=== PATIENT | female | born 1985 | race Caucasian/White ===

== ENCOUNTER 2017-01-04 17:00 | Inpatient (IN) | payer OTHER ==
[~2017-01-04] VITALS: Ht 170.2 cm; Wt 75.7 kg
--- NOTE | ~2017-01-04 | FD ---
ADMIT: 01/04/2017 RM/LOC: 219 [facility] MR#: [id number] [address] [id number] [facility] [address] [place] [address] Final Diagnosis SEX: F AGE: 31 : 1985 ADMISSION DATE: 01/04/2017 DISCHARGE DATE: 01/07/2017 FINAL DIAGNOSIS: Intrauterine at term. PROCEDURE: Spontaneous vaginal delivery. Sofía Cerrato MD/ jaime JOB #: [id number] CC: Sofía Cerrato MD, Attending Physician Sofía Cerrato MD, Family Physician
--- NOTE | ~2017-01-04 | HP ---
ADMIT: 01/04/2017 RM/LOC: 219 [facility] MR#: [id number] [address] [facility] [address] [place], [place] [address] [place] [address] [place] [address] History and Physical SEX: F AGE: 31 : 1985 DATE OF SERVICE: REASON FOR ADMISSION: Contractions. HISTORY OF PRESENT ILLNESS: The patient is a 31-year-old 1, para 0, who presented to Labor and Delivery at 37 and 6/7th weeks' gestation by last menstrual period with estimated confinement 01/19/2017. The patient's had been complicated by migraine headache, but had otherwise been uncomplicated. At time of admission, the patient was noted be having regular contractions and was noted to have cervical change and so was admitted in active labor. LABORATORY DATA: Blood type AB positive, antibody screen negative, RPR nonreactive, rubella nonimmune, group B Strep negative, HIV negative, gonorrhea and chlamydia negative, and hepatitis B surface antigen negative. PAST MEDICAL HISTORY: Noncontributory. PAST SURGICAL HISTORY: Cryosurgery in 2003 and LEEP procedure in 2004. CURRENT MEDICATIONS: 1. vitamins daily. 2. Tums as needed for heartburn. ALLERGIES: SULFA, WHICH CAUSES RASH AND PENICILLIN, WHICH CAUSES RASH. FAMILY HISTORY: Brother with tissue and muscular dystrophy. SOCIAL HISTORY: The patient is . She denies any alcohol, tobacco, or drug use. PHYSICAL EXAMINATION: VITAL SIGNS: On admission, blood pressure 125/75, pulse 81, temperature 98.5, and respirations 16. GENERAL: The patient is alert and oriented, in no acute distress. HEART: Regular rate and rhythm without murmurs, gallops, or rubs. ADMIT: 01/04/2017 RM/LOC: 219 [facility] MR#: [id number] [address] [facility] [address] [place] [id number] [place] [id number] [place] [address] [place] [address] History and Physical SEX: F AGE: 31 : 1985 LUNGS: Clear to auscultation bilaterally. ABDOMEN: Soft, nontender, gravid. EXTREMITIES: No edema. No calf tenderness. heart tones are in the 120s with moderate variability and accelerations present. Contractions are every 4 minutes. Cervix 2 cm dilated, 90% effaced, and -1 station. ASSESSMENT/PLAN: 1. A 31-year-old 1, para 0, at 37 and 6/7th weeks' gestation. 2. Active labor. Plan to admit in labor, and we will anticipate spontaneous vaginal delivery. Sofía Cerrato MD/ agustin JOB #: [id number] CC: Sofía Cerrato, Attending Physician Sofía Cerrato, Family Physician
--- NOTE | 2017-01-05 08:03 | OR ---
ADMIT: 01/04/2017 RM/LOC: 219 [facility] MR#: [id number] [address] [address] [place] [address] [address] [place] [address] Operative/Delivery Room Report SEX: F AGE: 31 : 1985 SURGERY DATE: 01/05/2017 SURGEON: Sofía Cerrato MD NAME OF PROCEDURE: Spontaneous vaginal delivery. PREOPERATIVE DIAGNOSES: 1. Intrauterine at 37-6/7th weeks' gestation. 2. Active labor. POSTOPERATIVE DIAGNOSES: 1. Intrauterine at 37-6/7th weeks' gestation. 2. Active labor. FINDINGS: Liveborn male , scores of 7 at 1 minute, 9 at 5 minutes. Weight 5 pounds 11 ounces. ESTIMATED BLOOD LOSS: 150 mL. ANESTHESIA: Epidural. COMPLICATIONS: None. INDICATIONS FOR PROCEDURE: The patient is a 31-year-old, 1, para 0, who presented to Labor and Delivery at 37-6/7th weeks with complaints of contractions. The patient was noted be in active labor. The patient progressed to 8 cm dilated. At that point, she was noted to have recurrent deep variable decelerations. Artificial rupture of membranes was performed. An amnioinfusion was started. This did relieve deep variables. The patient then progressed to completely dilated and pushed, bringing the infant's vertex to the perineum. PROCEDURE IN DETAIL: The patient was noted to be complete and pushing with the 's vertex at the perineum. The patient pushed and the infant's vertex delivered in the GALINA position over midline. There was noted to be ADMIT: 01/04/2017 RM/LOC: 219 [facility] MR#: [id number] [address] [place], [place] [id number] [place] [address] [place] [address] Operative/Delivery Room Report SEX: F AGE: 31 : 1985 rather tight nuchal cord. The patient continued to push. The anterior shoulder delivered, the posterior shoulder followed, and the remainder of the delivered without difficulty as well. The nuchal cord was relieved. The infant was dried and handed off to the mother's abdomen where nursing personnel were in attendance. Twenty units of Pitocin were placed in IV bag to firm the uterus. Cord was then clamped and cut. The placenta then delivered intact spontaneously. Cervix was examined and was noted to be free of lacerations. The vaginal vault and perineum were examined, there was noted to be a small second-degree midline laceration, which was repaired with 2-0 Vicryl in the usual fashion. The patient tolerated the procedure well. All sponge and needle counts were correct. The patient and her recovered in the room in stable condition. Sofía Cerrato MD/ agustin JOB #: [id number] CC: Sofía Cerrato, Attending Physician Sofía Cerrato, Family Physician
[2017-01-08] MEDS ORDERED: PRENATAL VIT1 TAB PO (13:22)
[2017-01-08] MEDS ORDERED: TYLENOL EXTRA500 M1 PO (13:23)
[2017-01-08] MEDS ORDERED: COLACE-DPS100 MG PO (13:23)
[2017-01-08] MEDS ORDERED: TUMS DPS500 MG PO (13:23)
[2017-01-08] MEDS ORDERED: NIPPLECREAM TP (13:23)
[2017-01-08] MEDS ORDERED: DERMOPLAST SPRA56 GM TP (13:23)
[2017-01-08] MEDS ORDERED: LAN-O-SOOTHE7 GM TP (13:24)
[2017-01-08] MEDS ORDERED: MOTRIN-DPS800 MG PO (13:25)
== END 2017-01-07 11:35 | disposition home or self-care (01) | DRG 775 ==
LOC: BC 17:00 → 2LDRP 17:00
PROVIDERS: ADMIT Obstetrics & Gynecology
DX: O69.1XX0 Labor and delivery complicated by cord around neck, with compression, not applicable or unspecified (principal); O76 Abnormality in fetal heart rate and rhythm complicating labor and delivery; O70.1 Second degree perineal laceration during delivery; Z3A.37 37 weeks gestation of pregnancy; Z37.0 Single live birth